=== PATIENT | male | born 1990 | race Caucasian/White ===

== ENCOUNTER → 2023-07-09 | Outpatient (CLI) | payer OTHER | LOC: MHCPAIN 11:44 | DX: M54.6 Pain in thoracic spine (principal); R07.89 Other chest pain; G54.0 Brachial plexus disorders; M79.2 Neuralgia and neuritis, unspecified | CPT/HCPCS: G0463 ==

== ENCOUNTER → 2023-10-27 | Outpatient (CLI) | payer SELFPAY | LOC: MHCPAIN 14:26 | DX: M54.6 Pain in thoracic spine (principal); R07.89 Other chest pain; G54.0 Brachial plexus disorders; M79.2 Neuralgia and neuritis, unspecified | CPT/HCPCS: G0463 ==

== ENCOUNTER → 2023-12-31 | Outpatient (CLI) | payer SELFPAY | LOC: MHCPAIN 13:32 | DX: M79.2 Neuralgia and neuritis, unspecified (principal); R07.89 Other chest pain; G54.0 Brachial plexus disorders | CPT/HCPCS: G0463 ==